=== PATIENT | female | born 1995 | race Caucasian/White ===

== ENCOUNTER → 2021-06-28 | Outpatient (CLI) | payer BC ==
[~2021-06-28] MED LIST: MOTRIN 800800 MG/TAB PO; PRENATAL; VITAMIN D31000 I1 PO
== END ==
LOC: ZCOL.LAB
DX: Z20.822 Contact with and (suspected) exposure to COVID-19 (principal)

== ENCOUNTER 2021-07-01 06:04 | Inpatient (IN) | payer BC ==
[2021-07-01] VITALS (39 sets, daily range): BP systolic 119–172; BP diastolic 61–88; PULSE 67–110; TEMP 97.6–98.6
[~2021-07-01] VITALS: Ht 165.1 cm; Wt 135.9 kg
[2021-07-01] MEDS ORDERED: VITAMIN D31000 I1 PO (07:16)
[2021-07-01] MEDS ORDERED: PRENATAL (07:16)
[2021-07-01 08:19] LABS: BASO % 0.2 % (0.0-2.0); EOS % 0.3 % (0-4.0); GRAN # 9.7 (1.4-6.5); GRAN % 71.8 % (42.2-75.2); HEMATOCRIT 40.5 % (37.0-47.0); LYMPH # 2.5 (1.2-3.4); LYMPH % 18.5 % (20.0-51.0); MEAN CELL VOLUME 87 fl (80.0-100.0); MEAN CORPUSCULAR HEMOGLOBIN 28 pg (27.0-31.0); MEAN CORPUSCULAR HGB CONC 32 g/dl (33.0-37.0); MEAN PLATELET VOLUME 9.8 fl (7.4-10.4); MONO # 1.2 (0.1-0.6); MONO % 8.8 % (1.7-9.3); PLATELET COUNT 407 K/mm3 (130-400); RED BLOOD COUNT 4.64 M/mm3 (4.10-5.30); REDCELL DISTRIBUTION WIDTH-CV 15.3 % (11.5-14.5)
[2021-07-01 09:34] LABS: ALBUMIN 3.5 gm/dL (3.5-5.0); BILIRUBIN,TOTAL 0.2 mg/dL (0.0-1.0); CALCIUM 9.3 mg/dL (8.4-10.2); CREATININE, serum 0.48 (0.52-1.25); POTASSIUM 3.9 mmol/L (3.4-5.0); TOTAL PROTEIN 6.8 gm/dL (6.4-8.2)
[2021-07-01 12:04] LABS: COLLECTION METHOD CLEAN CATCH
[2021-07-01 12:18] LABS: MUCOUS Present /lpf; PH 7 (5-8); SQUAMOUS EPITHELIAL 0-2 /hpf; URINE APPEARANCE Hazy; URINE BACTERIA None Seen /hpf; URINE BILIRUBIN Negative (NEGATIVE); URINE BLOOD Negative (NEGATIVE); URINE COLOR Yellow; URINE GLUCOSE Negative (NEGATIVE); URINE KETONE 2+ (NEGATIVE); URINE LEUKOCYTE ESTERASE Negative (NEGATIVE); URINE NITRATE Negative (NEGATIVE); URINE PROTEIN(semi-quant) 1+ (NEGATIVE); URINE UROBILINOGEN Negative (NEGATIVE)
[2021-07-01] MEDS ORDERED: MOTRIN 800800 MG/TAB PO (17:35)
[2021-07-02 02:30] VITALS: BP 138/80; PULSE 90; TEMP 98.4
[2021-07-02 08:08] VITALS: BP 141/82; PULSE 98; TEMP 98.1
[2021-07-02 16:23] VITALS: BP 131/76; PULSE 90; TEMP 98.6
== END 2021-07-02 16:50 | disposition home or self-care (01) | DRG 807 ==
LOC: LDR 06:04 → OB 10:47
PROVIDERS: ADMIT Obstetrics & Gynecology
PROC: 10E0XZZ Delivery of Products of Conception, External Approach (ICD-10-PCS; principal; 2021-07-01)
PROC: 0HQ9XZZ Repair Perineum Skin, External Approach (ICD-10-PCS; 2021-07-01)
PROC: 10907ZC Drainage of Amniotic Fluid, Therapeutic from Products of Conception, Via Natural or Artificial Opening (ICD-10-PCS; 2021-07-01)
PROC: 3E033VJ Introduction of Other Hormone into Peripheral Vein, Percutaneous Approach (ICD-10-PCS; 2021-07-01)
DX: O13.3 Gestational [pregnancy-induced] hypertension without significant proteinuria, third trimester (principal); Z37.0 Single live birth; O99.214 Obesity complicating childbirth; O70.0 First degree perineal laceration during delivery; O99.344 Other mental disorders complicating childbirth; F32.9 Major depressive disorder, single episode, unspecified; F41.9 Anxiety disorder, unspecified; O99.62 Diseases of the digestive system complicating childbirth; K21.9 Gastro-esophageal reflux disease without esophagitis; Z3A.40 40 weeks gestation of pregnancy
CPT/HCPCS: J2590; J7120

== ENCOUNTER → 2021-07-07 | Outpatient (CLI) | payer BC ==
--- NOTE | 2021-07-07 13:18 | NUR ---
Pt, Doc Wilkins, presents for outpatient consult with 6 day old baby boy, Jean Wilkins, and her spouse, J Carlos. She states she has sore nipples with nursing. Jean was born on [birth year] and weighed 8#2oz (3685 gms). He was seen at Dr. Henson's office on 07/04/21 an she reports his weight was 7#14oz. Today Jean weighs 8#6.9 (3824 gms). Pt latches Pena in her usual fashion and it appears to be shallows. Pt advised to remove Pena and is instructed on how to compress the areola into his mouth to get a deeper latch. She states this is more comfortable. It is noted she has an abundant supply of milk. She is also advised on how to catch his chin with on finger to help the jaw open wider with latching. Joseluis has qs voids, stools, and feedings per day. He generally only eats one breast per feeding and pt pumps x1 per day in the am, collecting about 7oz. After Jean has a weight gain of 2.5oz (70 gms). POC: Continue ad [place], working on compression of areola and catching jaw to open wider. F/U: As scheduled with Dr. Henson. Questions invited and answered.
== END ==
LOC: LAC 12:00
DX: Z71.89 Other specified counseling (principal)